=== PATIENT | male | born 1985 | race Caucasian/White ===

== ENCOUNTER 2017-06-22 18:06 | Emergency (ER) | payer MEDICAID ==
[2017-06-22 19:37] VITALS: BP 138/84
== END 2017-06-22 19:37 | disposition home or self-care (01) ==
LOC: ED 18:06
DX: M54.42 Lumbago with sciatica, left side (principal)

== ENCOUNTER 2019-11-20 23:44 | Emergency (ER) | payer MEDICAID ==
[~2019-11-20] VITALS: Ht 157.5 cm; Wt 72.6 kg
[2019-11-20 23:50] VITALS: Ht 157.5 cm; Wt 72.6 kg
[2019-11-21 01:12] LABS: CALCIUM 8.5 mg/dL (8.5-10.1); CARBON DIOXIDE 26.8 mmol/L (21-32); CHLORIDE SERUM 100 mmol/L (98-107); GFR1 > 60 mL/min; GLUCOSE SERUM 176 mg/dL (74-106); POTASSIUM SERUM 3.5 mmol/L (3.5-5.1); SODIUM SERUM 137 mmol/L (136-145)
[2019-11-21 01:17] LABS: ALBUMIN 4.2 g/dL (3.4-5.0); ALKALINE PHOSPHATASE 151 U/L (46-116); ALT/SGPT 109 U/L (16-63); AST/SGOT 73 U/L (15-37); BILIRUBIN TOTAL 0.44 mg/dL (0.20-1.00); CHOLESTEROL 159 mg/dL (<200); HDL CHOLESTEROL 53 mg/dL (40-60); MAGNESIUM 2.1 mg/dL (1.8-2.4); TOTAL PROTEIN, SERUM 7.5 g/dL (6.4-8.2)
[2019-11-21 01:22] LABS: BASOPHIL % 0.2 % (0-2); PLATELET COUNT 295 x10^3mcL (130-400); RED CELL DISTRIBUTION WIDTH 12.6 % (11.5-14.5)
[2019-11-21 03:57] VITALS: BP 115/68
== END 2019-11-21 03:57 | disposition left against medical advice (07) ==
LOC: ED 23:44
PROVIDERS: Emergency Medicine
DX: R51 Headache (principal); R42 Dizziness and giddiness; R11.0 Nausea
CPT/HCPCS: J2060; J2405; J7030; J8597; Q0092